=== PATIENT | male | born 2000 | race Two or more races ===

== ENCOUNTER 2021-06-17 19:20 | Emergency (ER) | payer OTHER ==
[~2021-06-17] VITALS: Ht 170.2 cm; Wt 63.5 kg
[2021-06-17 20:59] VITALS: BP 129/75
[2021-06-17] MEDS ORDERED: HYDROCODONE/APAP 5/325MG TABLET PO ONE (21:30)
[2021-06-17] MEDS ORDERED: IBUPROFEN 600 MG TABLET PO ONE (21:30)
[2021-06-17] MEDS ORDERED: IBUPROFEN 600 MG TABLET ONE (21:41)
[2021-06-17] MEDS ORDERED: HYDROCODONE/APAP 5/325MG TABLET ONE (21:41)
== END 2021-06-17 22:16 | disposition home or self-care (01) ==
LOC: ER 19:21
DX: S60.122A Contusion of left index finger with damage to nail, initial encounter (principal); S60.132A Contusion of left middle finger with damage to nail, initial encounter; S67.191A Crushing injury of left index finger, initial encounter; S67.193A Crushing injury of left middle finger, initial encounter; W23.0XXA Caught, crushed, jammed, or pinched between moving objects, initial encounter; Y93.89 Activity, other specified; Y92.89 Other specified places as the place of occurrence of the external cause; Y99.0 Civilian activity done for income or pay
CPT/HCPCS: 73140-TC